=== PATIENT | female | born 1985 ===

== ENCOUNTER → 2018-05-15 18:43 | Outpatient (REF) | payer OTHER, SELFPAY ==
[2018-05-15 19:06] LABS: Add Manual Diff / Slide Review NO; Basophils Percent Auto 0.7 % (0-2); Eosinophils Percent Auto 1.5 % (2-4); Hematocrit 31.6 % (36-46); Hemoglobin 10.9 g/dL (12.0-16.0); Lymphocytes Percent Auto 34.2 % (25-40); Mean Corpuscular HGB Conc 34.5 % (30-36); Mean Corpuscular Hemoglobin 31.2 PG (26-34); Mean Corpuscular Volume 90.5 fL (80-100); Neutrophils Absolute Auto 3700 /uL (1500-7000); Neutrophils Percent Auto 60.6 % (50-75); Platelet Count 271 X10^3/uL (150-400); Red Blood Cell Count 3.49 X10^6/uL (4.0-5.2); Red Cell Distribution Width 13.6 % (11.6-14.8); White Blood Cell Count 6.1 X10^3/uL (4.5-11.0)
[2018-05-15 19:15] LABS: Alanine Aminotransferase 16 IU/L (9-52); Albumin Globulin Ratio 1.3 (1.0-2.8); Alkaline Phosphatase 58 U/L (38-126); Aspartate Aminotransferase 18 IU/L (14-36); Bilirubin Total 0.3 mg/dL (0.2-1.3); Blood Urea Nitrogen 6 mg/dL (7-17); Calcium 9.1 mg/dL (8.4-10.2); Carbon Dioxide 21 mmol/L (22-32); Chloride 105 mmol/L (98-107); Estimated Glomerular Filt Rate > 60.0 mL/min (>60); Globulin 3.1 g/dL (1.7-4.1); Glucose 66 mg/dL (70-100); HEMOLYSIS < 15 (0-50); Potassium 3.8 mmol/L (3.4-5.1); Sodium 139 mmol/L (137-145); Total Protein 7.1 g/dL (6.3-8.2)
[2018-05-15 19:21] LABS: Hemoglobin A1C% w Est Avg Glu 4.7 % (4.0-6.0)
[2018-05-15 19:56] LABS: HCG Quantitative /Beta subunit 20582 mIU/mL
== END ==
LOC: LAB 18:43
PROVIDERS: Visit Provider Nurse Practitioner Acute Care
DX: Z33.3 Pregnant state, gestational carrier (principal); R94.5 Abnormal results of liver function studies
CPT/HCPCS: 80053; 83036; 84702; 85025